=== PATIENT | female | born 1970 | race Caucasian/White ===

== ENCOUNTER 2016-12-13 08:03 | Emergency (ER) | payer BC ==
[~2016-12-13] VITALS: Ht 154.9 cm; Wt 78.7 kg
[~2016-12-13 08:03] MED LIST: ALDACTAZIDE 251 EACH PO; AMITRIPTYLINE H10 MG PO; ATIVAN1 MG PO; BIOTIN1000 MICRO PO; CYMBALTA30 MG PO; FENOFIBRATE160 MG PO; FENOGLIDE40 MG PO; GLUCOPHAGE1000 MG PO; LIPITOR10 MG PO; MIRALAX255 GM PO; NIASPAN500 MG PO; NORCO 5/3251 TABLET PO; NOVOLOG MI100 UNIT/2 SQ; NOVOLOG100 UNIT/1 SC; NOVOLOG100 UNIT/1 SQ; PRAVASTATIN SOD80 MG PO; ZESTRIL,PRINIVI20 MG PO
[2016-12-13] MEDS ORDERED: NAPROSYN500 MG PO (10:15)
[2016-12-13] MEDS ORDERED: ROBITUSSIN NIG118 ML PO (10:15)
[2016-12-13] MEDS ORDERED: MUCUS ER600 MG PO (10:15)
[2016-12-13] MEDS ORDERED: TESSALON PERLE100 MG PO (10:15)
[2016-12-13] MEDS ORDERED: PROAIR HFA8.5 GM IH (10:23)
[2016-12-13 10:36] VITALS: BP 130/78
== END 2016-12-13 10:43 | disposition home or self-care (01) ==
LOC: EME 08:03
DX: J20.8 Acute bronchitis due to other specified organisms (principal); M79.1 Myalgia; J30.2 Other seasonal allergic rhinitis; E11.9 Type 2 diabetes mellitus without complications; E78.5 Hyperlipidemia, unspecified; I10 Essential (primary) hypertension; F17.200 Nicotine dependence, unspecified, uncomplicated
CPT/HCPCS: 71020; 93005; 94640; 99281; 99284